=== PATIENT | female | born 1955 | race Caucasian/White ===

== ENCOUNTER 2017-09-30 09:00 | Inpatient (IN) ==
[2017-09-24 13:41] LABS: Basophils # (Auto) 0 K/mcL (0.0-0.3); Basophils % (Auto) 0.4 % (0.0-2.0); Eosinophils # (Auto) 0.3 K/mcL (0.0-0.7); Eosinophils % (Auto) 4.1 % (0.0-7.0); Granulocytes % (Auto) 58.7 % (38.0-78.0); Lymphocytes # (Auto) 2.1 K/mcL (1.5-4.8); Lymphocytes % (Auto) 29.7 % (15.5-49.0); Mean Cell Volume 95.8 fL (80.0-100.0); Mean Corpuscular HGB Conc 33.4 g/dL (31.0-36.0); Monocytes # (Auto) 0.5 K/mcL (0.1-0.9); Monocytes % (Auto) 7.1 % (1.0-12.0); Platelet Count 454 K/mcL (140-440); RBC 4.15 M/mcL (4.00-5.20); Red Cell Distribution Width 12.7 % (11.5-14.5)
[2017-09-24 13:58] LABS: Appearance,Urine CLEAR; Bilirubin,Urine NEG (NEG); Color,Urine STRAW; Glucose,Urine (UA) NEGATIVE (NEG); Leukocyte Esterase,Urine NEG /uL (NEG); Nitrate,Urine NEG (NEG); Protein,Urine NEG (NEG); Specific Gravity,Urine 1.006 (1.000-1.035); Urine Blood NEG mg/dL (<0.03); Urobilinogen,Urine NEG (NEG)
[~2017-09-30 09:00] MED LIST: ACETAMINOPHEN 500 MG TABLET PO SCH; CELECOXIB 200 MG CAPSULE PO SCH; PREGABALIN 75 MG CAPSULE PO SCH; ceFAZolin 1 GM VIAL IV SCH; oxyCODONE 10 MG TAB.ER.12H PO SCH
[2017-09-30] MEDS ORDERED: VANCOMYCIN 1,000 MG in 0.9 % SODIUM CHLORIDE 250 ML IV ONE (13:38)
[2017-09-30] MEDS ORDERED: MIDAZOLAM 2 MG/2 ML VIAL IV ONE (14:00)
[2017-09-30] MEDS ORDERED: LIDOCAINE HCL/PF 100 MG/5 ML SYRINGE IV ONE (14:00)
[2017-09-30] MEDS ORDERED: fentaNYL 100 MCG/2 ML VIAL IV ONE (14:00)
[2017-09-30] MEDS ORDERED: SUCCINYLCHOLINE 20 MG/ML ML IV ONE (14:00)
[2017-09-30] MEDS ORDERED: PROPOFOL 200 MG/20 ML VIAL IV ONE (14:00)
[2017-09-30] MEDS ORDERED: DEXAMETHASONE 10 MG/ML VIAL IV ONE (14:00)
[2017-09-30] MEDS ORDERED: ONDANSETRON 4 MG/2 ML VIAL IV ONE (14:00)
[2017-09-30] MEDS ORDERED: IPRATROPIUM/ALBUTEROL 3 ML AMPUL.NEB NEB PRN ×2 (14:54→15:01)
[2017-09-30] MEDS ORDERED: ePHEDrine 50 MG/ML AMPUL IV PRN (14:54)
[2017-09-30] MEDS ORDERED: FLUMAZENIL 0.1 MG/ML ML IV PRN (14:54)
[2017-09-30] MEDS ORDERED: PROMETHAZINE 25 MG/ML VIAL IV PRN (14:54)
[2017-09-30] MEDS ORDERED: HYDROmorphone 2 MG/ML SYRINGE IV PRN ×2 (14:54→14:59)
[2017-09-30] MEDS ORDERED: ATROPINE SULFATE 0.4 MG/ML VIAL IV PRN (14:54)
[2017-09-30] MEDS ORDERED: NALOXONE HCL 0.4 MG/ML VIAL IV PRN (14:54)
[2017-09-30] MEDS ORDERED: diphenhydrAMINE 50 MG/ML VIAL IV PRN (14:54)
[2017-09-30] MEDS ORDERED: ACETAMINOPHEN 800 MG/80 ML BOTTLE IV ONE (14:54)
[2017-09-30] MEDS ORDERED: MEPERIDINE 25 MG/ML SYRINGE IV PRN (14:54)
[2017-09-30] MEDS ORDERED: METOPROLOL TARTRATE 5 MG/5 ML VIAL IV PRN (14:54)
[2017-09-30] MEDS ORDERED: fentaNYL 100 MCG/2 ML VIAL IV PRN (14:54)
[2017-09-30] MEDS ORDERED: ONDANSETRON 4 MG/2 ML VIAL IV PRN ×2 (14:54→14:59)
[2017-09-30] MEDS ORDERED: METHOCARBAMOL 1,000 MG/10 ML VIAL IV PRN (14:54)
[2017-09-30] MEDS ORDERED: MAGNESIUM HYDROXIDE 30 ML ORAL.SUSP PO PRN (14:59)
[2017-09-30] MEDS ORDERED: TRANEXAMIC ACID 1,000 MG/10 ML VIAL IV SCH (14:59)
[2017-09-30] MEDS ORDERED: ACETAMINOPHEN 325 MG TABLET PO PRN (14:59)
[2017-09-30] MEDS ORDERED: POLYETHYLENE GLYCOL 3350 17 GM PACKET PO PRN (14:59)
[2017-09-30] MEDS ORDERED: TEMAZEPAM 15 MG CAPSULE PO PRN (14:59)
[2017-09-30] MEDS ORDERED: BISACODYL 10 MG SUPP.RECT PR PRN (14:59)
[2017-09-30] MEDS ORDERED: FLEETS ADULT ENEMA PR PRN (14:59)
[2017-09-30] MEDS ORDERED: ALBUTEROL SULFATE 1 PUFF INHALER INH PRN (15:01)
[2017-09-30] MEDS ORDERED: FUROSEMIDE 20 MG TABLET PO PRN (15:01)
[2017-09-30] MEDS ORDERED: METHOCARBAMOL 750 MG TABLET PO PRN (15:01)
[2017-09-30] MEDS ORDERED: ONDANSETRON ODT 4 MG TABLET SL PRN (15:01)
[2017-09-30] MEDS ORDERED: ACETAMINOPHEN PO PRN (15:01)
[2017-09-30] MEDS ORDERED: HYOSCYAMINE 0.375 MG PO PRN (15:01)
[2017-09-30] MEDS ORDERED: ASPIRIN PO PRN (15:01)
[2017-09-30] MEDS ORDERED: CAFFEINE PO PRN (15:01)
[2017-09-30] MEDS ORDERED: ALBUTEROL SULFATE 2.5 MG/3 ML NEBULIZER IH PRN (15:01)
--- NOTE | 2017-09-30 15:13 | Brief Operative Note ---
Date of procedure: 09/30/17 Pre-op diagnosis: right shoulder djd Post-op diagnosis: same Procedure: right shoulder reverse tsa Grafts/Implants: Yes Anesthesia: GETA Complications: none Complications Description: 09/30/17 15:12 none Surgeon: Mohamud Dexter Spray Applicator: Rafy Colon Estimated blood loss (cc): 50 Specimens Removed/Pathology: none sent Condition: stable Disposition: PACU
[2017-09-30] MEDS ORDERED: BUPIVACAINE W/EPI 0.5% 50 ML VIAL IJ ONE (15:33)
[2017-09-30] MEDS ORDERED: GENTAMICIN SULFATE 800 MG/20 ML VIAL IR ONE (15:33)
--- NOTE | 2017-09-30 15:59 | Operative Note ---
DATE OF OPERATION: 09/30/2017 PREOPERATIVE DIAGNOSIS: Right shoulder rotator cuff arthropathy with a failed rotator cuff surgery. POSTOPERATIVE DIAGNOSIS: Right shoulder rotator cuff arthropathy with a failed rotator cuff surgery. PROCEDURE: Right reverse total shoulder. SURGEON: Mohamud Dexter MD DRY PAN OPERATOR: Rafy Colon PA-C ANESTHESIA: General LMA anesthesia. COMPLICATIONS: None. DESCRIPTION OF PROCEDURE: The patient was brought to the operating room and put to sleep with general LMA anesthesia. Once asleep, the patient had the right shoulder sterilely prepped and draped in the usual sterile fashion. A timeout was performed. We confirmed this was the operative site. Ioban was placed over the skin. Preop antibiotics and vancomycin as well as tranexamic acid was given. We then made a deltopectoral approach to the shoulder, identifying the cephalic vein which was retracted laterally. We then released the subscap and dislocated the humeral head. We released the remnants of the biceps tendon. We irrigated thoroughly and made our neck cut with the alignment guide. Once done, we then placed a protective plate on the humeral head and then subluxed this posteriorly. We placed a cobra retractor around the anterior and inferior portion of the glenoid and performed a 360 degree capsulotomy. Once done, I then reamed to a size 32 with a central pin. Once this was done, we placed a metaglene and a 32 mm glenosphere with 2 mm of offset. Once this was done, we then prepared the humerus. We broached up to a size 7 stem, trialed the size 7 with a standard thickness poly. This was a little loose, so we went to the size 6, and +6 seemed to be the most appropriate. We then implanted a cementless stem with a little bit of cement on the very end because of her bone quality and then placed a 6 mm poly. This was reduced. Once stable, we irrigated thoroughly and then took the shoulder through range of motion. It was very stable. We replaced the deltopectoral interval with 2-0 Vicryl and closed the skin with 2-0 Vicryl and adhesive closure. The patient tolerated this well without complication. A DonJoy sling was fitted and given to the patient as well. RBH:dorie Job ID: [id number] Doc ID: [id number] Mohamud Dexter MD
[2017-09-30] MEDS: 0.45 % SODIUM CHLORIDE 1,000 ML IV SCH (16:28)
[2017-09-30] MEDS: SUCRALFATE 1 GM TABLET PO SCH (18:01)
[2017-09-30] MEDS: OMEPRAZOLE 20 MG CAPSULE PO SCH (18:02)
[2017-09-30] MEDS: HYDROcodone/APAP 5/325MG TABLET PO PRN ×2 (18:07→22:19)
[2017-09-30] MEDS ORDERED: SENNOSIDES 1 TABLET PO SCH (21:00)
[2017-09-30] MEDS ORDERED: SIMVASTATIN 20 MG TABLET PO SCH (21:00)
[2017-09-30] MEDS: DOCUSATE SODIUM 100 MG CAPSULE PO SCH (21:26)
[2017-09-30] MEDS: PROPRANOLOL 80 MG CAP.XL.24H PO SCH (21:26)
[2017-09-30] MEDS: FAMOTIDINE 20 MG TABLET PO SCH (21:27)
[2017-09-30] MEDS: ceFAZolin 1 GM VIAL IV SCH (22:18)
[2017-09-30] MEDS: 0.9 % SODIUM CHLORIDE 10 ML SYRINGE IV SCH (22:19)
[2017-10-01] MEDS: HYDROcodone/APAP 5/325MG TABLET PO PRN ×4 (00:33→10:29)
[2017-10-01] MEDS: KETOROLAC 15 MG/ML VIAL IV PRN ×3 (00:34→13:01)
[2017-10-01] MEDS: 0.45 % SODIUM CHLORIDE 1,000 ML IV SCH ×2 (01:23→11:33)
[2017-10-01] MEDS: BENZOCAINE/MENTHOL 1 LOZENGE PO PRN ×2 (03:37→06:58)
[2017-10-01] MEDS: ceFAZolin 1 GM VIAL IV SCH (04:54)
[2017-10-01] MEDS: 0.9 % SODIUM CHLORIDE 10 ML SYRINGE IV SCH (04:54)
[2017-10-01] MEDS: SUCRALFATE 1 GM TABLET PO SCH (06:46)
[2017-10-01] MEDS: OMEPRAZOLE 20 MG CAPSULE PO SCH (06:48)
--- NOTE | 2017-10-01 07:47 | Orthopedic Progress Note ---
Subjective Patient information: Note initiated : 10/01/17 at 7:47 am Service Date, if different from initiated Date: [] Patient: Jacquelyn Guevara 62 y/o F admitted on 09/30/17 for Right Total Shoulder Arthroplasty with Tendon Repa. Chief Complaint: Pt is stable this morning on post operative day 1 without any significant concerns or complaints. Patients vital signs have remained stable. Patients dressing is dry and is grossly instact from a neurovascular and motor standpoint. Patients 10 point ROS is otherwise negative. ] Objective Vital signs: Vital Signs Temp Pulse Resp BP Pulse Ox 10/01/17 07:09 69 10/01/17 07:04 98.9 F 69 18 122/58 93 10/01/17 04:00 98.3 F 68 16 140/72 90 10/01/17 00:23 97.7 F 63 14 132/62 93 09/30/17 19:15 97.5 F 65 16 130/55 92 09/30/17 18:15 67 171/75 96 09/30/17 17:45 131/57 90 09/30/17 17:15 153/60 90 09/30/17 17:00 157/55 92 09/30/17 16:45 147/60 94 09/30/17 16:30 164/63 97 09/30/17 16:21 98.2 F 82 14 166/61 95 09/30/17 15:58 98.2 F 86 14 135/67 97 09/30/17 15:43 98.4 F 63 16 154/65 97 09/30/17 15:28 98.1 F 60 16 145/67 97 09/30/17 10:13 97.6 F 18 140/72 95 Intake and Output 09/30/17 10/01/17 10/01/17 21:59 05:59 13:59 Intake Total 1000 / 1000 750 / 750 Output Total 350 / 350 2300 / 2300 400 / 400 Balance 650 / 650 -1550 / -1550 -400 / -400 Intake: Oral 750 / 750 IV - Manual Only 1000 / 1000 Output: Void Amount 350 / 350 2300 / 2300 400 / 400 Other: Weight 129 lb Intake & Output: Intake & Output 09/30/17 10/01/17 10/01/17 21:59 05:59 13:59 Intake Total 1000 / 1000 750 / 750 Output Total 350 / 350 2300 / 2300 400 / 400 Balance 650 / 650 -1550 / -1550 -400 / -400 Weight 129 lb Intake: Oral 750 / 750 IV - Manual Only 1000 / 1000 Output: Void Amount 350 / 350 2300 / 2300 400 / 400 Incision: Yes healing Incision clean and dry: Yes Dressing: Yes clean, Yes dry Neurological exam IM: Yes motor sensory intact, Yes neurovascular intact - Labs CBC & BMP: 09/24/17 12:30 Labs: Orthopedic Labs 09/24/17 12:30 PT 12.6 INR 0.9 APTT 31 09/24/17 12:30 Hgb 13.3 Hct 39.8 Assessment and Plan (1) Hx of total shoulder replacement The patient has been educated regarding dressing care, Physical Therapy recommendations, home exercises, restrictions, and follow up appointments. The patient has had all necessary DME prescribed. The patient has remained stable during their hospital course. The patient was discharge with a stable exam. Leave Dermabond patch intact until followup Status: Acute
--- NOTE | 2017-10-01 07:50 | Discharge Summary ---
Ortho Discharge - TSA - Patient Instructions Diet: Regular Diet Activity: activity as tolerated, weight bearing as tolerated Total Shoulder Protocol: Leave immobilizer in place except for bathing and ROM. Abduction pillow. Continue to wear sling until seen by physician. Codman Pendulum : These exercises use momentum produced by your body to move your shoulder joint. Bend your knees and shift your weight to your front leg, then back, allowing your arm to swing in the same directions. Using the same technique, alternately shift your weight between your right and left legs, allowing your arm to swing from side to side. These exercises are also performed in counterclockwise and clockwise circular motions. Typically these exercises are performed several times per day, for a set number repetitions or minutes, such as 20 times in a row or 5 minutes at a time. Dressing Care: May shower in 2 days Patient Education: Shoulder Arthroplasty (DC) - Problem Maintenance (1) Hx of total shoulder replacement Status: Acute - Follow Up Plan Follow Up Appointments: Rafy Colon PA-C [Physician Branch Operations Specialist] - 10/15/17 10:40 am Disposition: Home, Self-Care Prognosis: Good Rehab Potential: Good I certify that the patient requires SNF services: No Overall status at discharge: patient is progressing back to baseline - Orders For Discharge Prescriptions: Docusate Sodium [Colace] 100 mg PO BID #60 cap HYDROcodone/APAP 5/325MG [[place] 5/325Mg] 1 - 2 tab PO Q4HP PRN #75 tab PRN Reason: Pain Level 3-6
[2017-10-01] MEDS ORDERED: POTASSIUM CHLORIDE 10 MEQ TABLET PO SCH (08:00)
--- NOTE | 2017-10-01 08:00 | XRay Report ---
HISTORY: Reason for Exam:Post-OP Total Shoulder FINDINGS: There is a well-positioned right shoulder prosthesis. No fracture is present. There is widening of space between the acromion and clavicle which may be from prior resection of the distal end of the clavicle. Spine has a scoliotic curvature with associated arthritis and disc space narrowing. IMPRESSION: Well-positioned right shoulder prosthesis Interpreted and Authenticated by: Garcia Hammer 10/01/17
[2017-10-01] MEDS: DOCUSATE SODIUM 100 MG CAPSULE PO SCH (08:47)
[2017-10-01] MEDS: FAMOTIDINE 20 MG TABLET PO SCH (08:47)
[2017-10-01] MEDS: PROPRANOLOL 80 MG CAP.XL.24H PO SCH (08:48)
[2017-10-01] MEDS ORDERED: NON FORMULARY MEDICATION 1 DOSE MISCELL (Cranberry Conc/C/Bacill Coag [Cranberry Tablet] 1 PO SCH (09:00)
[2017-10-01] MEDS ORDERED: CALCIUM W/VIT D3 500 MG TABLET PO SCH (09:00)
[2017-10-01] MEDS ORDERED: MULTIVIT,THER IRON,CA,FA & MIN 1 TABLET PO SCH (09:00)
[2017-10-01] MEDS ORDERED: CLOPIDOGREL 75 MG TABLET PO SCH (09:00)
[2017-10-01] MEDS ORDERED: ENOXAPARIN 40 MG/0.4 ML SYRINGE SQ SCH (09:00)
== END 2017-10-01 13:40 | disposition home or self-care (01) | DRG 508 ==
LOC: MEDSUR 09:49
PROVIDERS: ADMIT Orthopaedic Surgery; ATTEND Orthopaedic Surgery